=== PATIENT | female | born 1990 | race Caucasian/White ===

== ENCOUNTER → 2016-06-12 | Outpatient (REF) | payer OTHER | LOC: M SFHCLERA 17:05 | PROVIDERS: ATTEND Nurse Practitioner Family | DX: J35.1 Hypertrophy of tonsils (principal) ==

== ENCOUNTER 2016-11-28 13:22 | Emergency (ER) | payer OTHER ==
[~2016-11-28] VITALS: Ht 157.5 cm; Wt 56.8 kg
[2016-11-28] MEDS ORDERED: NS 1,000 ML IV ONE (13:45)
[2016-11-28 14:11] LABS: BASO % 0.4 % (0.0-1.0); EOS # 0.1 K/mm3 (0.0-0.50); EOS % 1.2 % (0.0-3.0); LARGE UNSTAINED CELL # 0.1 K/mm3 (0.0-0.4); LARGE UNSTAINED CELL % 1.8 % (0.0-4.0); LYMPH # 1.3 K/mm3 (1.5-6.5); LYMPH % 17.4 % (24.0-44.0); MEAN CORPUSCULAR HEMOGLOBIN 31.4 pg (27.0-33.0); MEAN CORPUSCULAR VOLUME 92.4 fl (80.0-96.0); MONO # 0.3 K/mm3 (0.0-0.8); MONO % 4.4 % (0.0-5.0); NEUTROPHILS # 5.5 K/mm3 (1.8-7.7); NEUTROPHILS % 74.7 % (36.0-66.0); PLATELET COUNT, AUTOMATED 206 k/mm3 (150-450); WHITE BLOOD COUNT 7.4 K/mm3 (4.0-10.0)
[2016-11-28 14:28] LABS: INR 1.02
[2016-11-28 14:34] LABS: ANION GAP 9 MEQ/L (8-16); BLOOD UREA NITROGEN 9 MG/DL (7-18); CALCIUM LEVEL 8.6 MG/DL (8.5-10.1); CARBON DIOXIDE LEVEL 25 MEQ/L (21-32); CHLORIDE LEVEL 109 MEQ/L (98-107); CREATININE FOR GFR 0.87 MG/DL (0.55-1.02); GLOMERULAR FILTRATION RATE > 60.0 (>60); GLUCOSE, FASTING 74 MG/DL (70-105); MAGNESIUM LEVEL 1.8 MG/DL (1.8-2.4); POTASSIUM SERUM 3.9 MEQ/L (3.5-5.1); SODIUM LEVEL 143 MEQ/L (136-145)
[2016-11-28 14:40] LABS: HCG, SERUM QUANTITATIVE < 1.0 MIU/ML
[2016-11-28] MEDS ORDERED: XANA1TAB2 PO (14:41)
[2016-11-28] MEDS ORDERED: TRAM50TA2 PO (14:41)
[2016-11-28] MEDS ORDERED: ZOFR4TAB3 PO (15:54)
[2016-11-28 15:59] LABS: METHADONE URINE NEGATIVE (NEGATIVE)
[2016-11-28 16:38] VITALS: BP 119/65
--- NOTE | 2016-11-29 06:04 | ECGEPIP ---
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
--- NOTE | 2016-11-29 13:20 | REP ---
CT BRAIN WITHOUT CONTRAST: CT brain is performed without IV contrast. The ventricles are normal in size and position. There is no midline shift. No abnormal densities are seen. Graf/white differentiation is well maintained. There is no acute hemorrhage. There is no extra-axial fluid collection. Fluid and mucosal thickening is seen in the frontal sinuses. IMPRESSION: Frontal sinusitis. Otherwise negative noncontrast CT brain. Signed by Ilan Graf MD 11/29/2016 07:00 P
== END 2016-11-28 16:42 | disposition home or self-care (01) ==
LOC: M ED 13:22
DX: R55 Syncope and collapse (principal); Z79.891 Long term (current) use of opiate analgesic; Z79.899 Other long term (current) drug therapy

== ENCOUNTER 2017-01-23 12:20 | Emergency (ER) | payer OTHER ==
[~2017-01-23] VITALS: Ht 157.5 cm; Wt 55.8 kg
[~2017-01-23 12:20] MED LIST: TRAM50TA2 PO; XANA1TAB2 PO; ZOFR4TAB3 PO
[2017-01-23] MEDS ORDERED: NS 1,000 ML IV ONE (13:15)
[2017-01-23 13:49] LABS: BASO % 0.4 % (0.0-1.0); EOS # 0.1 10^3/uL (0.0-0.50); EOS % 1.4 % (0.0-3.0); IMMATURE GRANULOCYTE % 0.1 % (0-0); LYMPH # 1.1 10^3/uL (1.5-6.5); LYMPH % 14.5 % (24.0-44.0); MEAN CORPUSCULAR HEMOGLOBIN 30.1 pg (27.0-33.0); MEAN CORPUSCULAR HGB CONC 33.4 g/dl (32.0-36.5); MEAN CORPUSCULAR VOLUME 90.1 fl (80.0-96.0); MONO # 0.5 10^3/uL (0.0-0.8); MONO % 7.1 % (0.0-5.0); NEUTROPHILS # 5.6 10^3/uL (1.8-7.7); NEUTROPHILS % 76.5 % (36.0-66.0); PLATELET COUNT, AUTOMATED 181 10^3/uL (150-450); RED CELL DISTRIBUTION WIDTH 12.3 % (11.5-14.5); WHITE BLOOD COUNT 7.3 10^3/uL (4.0-10.0)
[2017-01-23] MEDS ORDERED: ADACEL/BOOSTRIX VACCINE (DIPHTH/PERTUSS/ACELL/TETANUS)0.5ML SYR (90715) IM ONE (14:00)
[2017-01-23 14:15] LABS: ANION GAP 7 MEQ/L (8-16); BLOOD UREA NITROGEN 8 MG/DL (7-18); CALCIUM LEVEL 8.8 MG/DL (8.5-10.1); CARBON DIOXIDE LEVEL 25 MEQ/L (21-32); CHLORIDE LEVEL 105 MEQ/L (98-107); CREATININE FOR GFR 0.93 MG/DL (0.55-1.02); GLOMERULAR FILTRATION RATE > 60.0 (>60); GLUCOSE, FASTING 75 MG/DL (70-105); POTASSIUM SERUM 4.1 MEQ/L (3.5-5.1); SODIUM LEVEL 137 MEQ/L (136-145)
[2017-01-23 14:16] LABS: CONTROL LINE HCG INT CTR LINE PRESENT
[2017-01-23 15:30] VITALS: BP 118/77
[2017-01-23] MEDS ORDERED: ACETAMINOPHEN TAB 650MG DOSE (2X325MG) PO ONE (15:30)
--- NOTE | 2017-01-24 06:51 | REP ---
LEFT ELBOW, FOUR VIEWS: There is no evidence of an acute fracture, dislocation or intrinsic bone disease. IMPRESSION: No fracture or dislocation. Signed by Ilan Graf MD 01/24/2017 05:26 P
--- NOTE | 2017-01-24 06:52 | REP ---
CHEST, SINGLE VIEW: There is no evidence of acute infiltrate. No pleural effusion is seen. The heart is normal in size. The mediastinal silhouette is unremarkable. The visualized osseous structures are intact. IMPRESSION: No acute pulmonary disease. Signed by Ilan Graf MD 01/24/2017 05:26 P
--- NOTE | 2017-01-24 06:53 | REP ---
CT BRAIN WITHOUT IV CONTRAST: CT brain is performed without IV contrast. Comparison made with prior study of 11/28/2016. Ventricles are normal in size and position. There is no midline shift or mass effect. Graf-white differentiation is well maintained. There is no acute hemorrhage. There is no extra-axial fluid collection. There is no skull fracture. IMPRESSION: Negative noncontrast CT brain. Signed by Ilan Graf MD 01/24/2017 05:26 P
--- NOTE | 2017-01-24 21:19 | ECGEPIP ---
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
== END 2017-01-23 15:37 | disposition home or self-care (01) ==
LOC: EDBD 12:20 → M ED 12:20
DX: R55 Syncope and collapse (principal); F41.9 Anxiety disorder, unspecified; F12.90 Cannabis use, unspecified, uncomplicated; Z87.891 Personal history of nicotine dependence

== ENCOUNTER 2017-04-27 19:36 | Emergency (ER) | payer OTHER ==
[2017-04-27] MEDS: CLINDAMYCIN 150 MG CAP PO (21:25)
[2017-04-27] MEDS: ERYTHROMYCIN OPHTH OINT OS (21:25)
== END 2017-04-27 21:26 | disposition home or self-care (01) ==
LOC: M ED 19:36
DX: H10.022 Other mucopurulent conjunctivitis, left eye (principal); L03.213 Periorbital cellulitis; F41.9 Anxiety disorder, unspecified; Z79.899 Other long term (current) drug therapy
CPT/HCPCS: 99283

== ENCOUNTER → 2017-09-21 | Outpatient (REF) | payer OTHER ==
[2017-09-22 09:36] LABS: HEPATITIS B SURFACE ANTIGEN NEGATIVE (NEGATIVE)
[2017-09-22 09:58] LABS: HEPATITIS C VIRUS ABY INDEX < 0.0 INDEX (<0.8)
[2017-09-22 09:58] LABS: HEPATITIS B CORE ANTIBODY IGM NEGATIVE (NEGATIVE)
[2017-09-22 09:59] LABS: HIV 1&2 SCREEN CENTAUR NEGATIVE (NEGATIVE)
[2017-09-22 10:00] LABS: HEPATITIS A ANTIBODY IGM NEGATIVE (NEGATIVE)
== END ==
LOC: M SFHCPLAZ 13:08
DX: Z11.59 Encounter for screening for other viral diseases (principal); Z11.4 Encounter for screening for human immunodeficiency virus [HIV]

== ENCOUNTER → 2017-09-22 | Outpatient (CLI) | payer OTHER ==
[~2017-09-22] MED LIST changes: +ISOVUE-370 76% 100ML VIAL (Q9967) As Ordered; -TRAM50TA2 PO; -XANA1TAB2 PO; -ZOFR4TAB3 PO
== END ==
LOC: M RAD 09:23
DX: R22.31 Localized swelling, mass and lump, right upper limb (principal)
CPT/HCPCS: Q9967

== ENCOUNTER → 2017-10-14 | Outpatient (REF) | payer OTHER ==
[2017-10-14 11:07] LABS: BASO % 0.7 % (0.0-1.0); EOS # 0.3 10^3/uL (0.0-0.50); EOS % 5.7 % (0.0-3.0); HEMATOCRIT 39.9 % (36.0-47.0); HEMOGLOBIN 12.9 g/dl (12.0-15.5); IMMATURE GRANULOCYTE % 0.7 % (0-3.0); LYMPH # 2.3 10^3/uL (1.5-6.5); LYMPH % 40.7 % (24.0-44.0); MEAN CORPUSCULAR HEMOGLOBIN 30.4 pg (27.0-33.0); MEAN CORPUSCULAR HGB CONC 32.3 g/dl (32.0-36.5); MEAN CORPUSCULAR VOLUME 94.1 fl (80.0-96.0); MONO # 0.5 10^3/uL (0.0-0.8); MONO % 9.1 % (0.0-5.0); NEUTROPHILS # 2.4 10^3/uL (1.8-7.7); NEUTROPHILS % 43.1 % (36.0-66.0); PLATELET COUNT, AUTOMATED 180 10^3/uL (150-450); RED BLOOD COUNT 4.24 10^6/uL (4.00-5.40); RED CELL DISTRIBUTION WIDTH 12.2 % (11.5-14.5); WHITE BLOOD COUNT 5.6 10^3/uL (4.0-10.0)
[2017-10-14 12:52] LABS: ALBUMIN 3.8 GM/DL (3.2-5.2); ALBUMIN/GLOBULIN RATIO 1.27 (1.00-1.93); ALKALINE PHOSPHATASE 54 U/L (45-117); ALT/SGPT 45 U/L (12-78); ANION GAP 8 MEQ/L (8-16); AST/SGOT 26 U/L (7-37); BILIRUBIN,TOTAL 0.2 MG/DL (0.2-1.0); BLOOD UREA NITROGEN 7 MG/DL (7-18); CARBON DIOXIDE LEVEL 29 MEQ/L (21-32); CHLORIDE LEVEL 105 MEQ/L (98-107); CREATININE FOR GFR 0.68 MG/DL (0.55-1.30); GLOMERULAR FILTRATION RATE > 60.0 (>60); GLUCOSE, FASTING 77 MG/DL (70-100); POTASSIUM SERUM 4.2 MEQ/L (3.5-5.1); SODIUM LEVEL 142 MEQ/L (136-145); TOTAL PROTEIN 6.8 GM/DL (6.4-8.2)
[2017-10-22 14:46] LABS: AMPHETAMINE SCREEN, URINE Negative ng/mL (Cutoff=1000); BARBITURATES SCREEN, URINE Negative ng/mL (Cutoff=200); BENZODIAZEPINES, URINE SCREEN Negative ng/mL (Cutoff=200); CANNABINOID SCREEN, URINE See Final Results ng/mL (Cutoff=20); CANNABINOID, URINE Positive (Cutoff=20); CARBOXY THC (GC/MS) 40 ng/mL (Cutoff=10); COCAINE SCREEN, URINE Negative ng/mL (Cutoff=300); CODEINE, URINE Negative (Cutoff=100); CREATININE, URINE 48.5 mg/dL (20.0-300.0); FENTANYL URINE SCREEN Negative pg/mL (Cutoff=2000); HYDROCODONE CONFIRM, URINE 170 ng/mL (Cutoff=100); HYDROCODONE, URINE Positive (.); HYDROMORPHONE CONFIRM, URINE 254 ng/mL (Cutoff=100); HYDROMORPHONE, URINE Positive (.); METHADONE, URINE SCREEN Negative ng/mL (Cutoff=300); MORPHINE, URINE Negative (Cutoff=100); OPIATE SCREEN, URINE See Final Results ng/mL (Cutoff=300); OPIATES, URINE Positive ng/mL (Cutoff=300); OXYCODONE, SCREEN, URINE Negative ng/mL (Cutoff=100); PCP SCREEN, URINE Negative ng/mL (Cutoff=25); SPECIFIC GRAVITY, URINE 1.007 (.); pH, URINE 5.8 (4.5-8.9)
== END ==
LOC: M SFHCPLAZ 09:24
DX: Z00.00 Encounter for general adult medical examination without abnormal findings (principal)
CPT/HCPCS: 84443

== ENCOUNTER → 2018-02-02 | Outpatient (REF) | payer OTHER | LOC: M SFHCLERA 18:55 | DX: R11.2 Nausea with vomiting, unspecified (principal) | CPT/HCPCS: 87086 ==

== ENCOUNTER 2018-11-03 10:54 | Emergency (ER) | payer OTHER ==
[~2018-11-03] VITALS: Ht 157.5 cm; Wt 56.2 kg
[~2018-11-03 10:54] MED LIST changes: +CLEO300C2 PO; +ERYT1OIN26 OS; -ISOVUE-370 76% 100ML VIAL (Q9967) As Ordered; +TRAM50TA2 PO; +XANA1TAB2 PO; +ZOFR4TAB14 PO
[2018-11-03] MEDS ORDERED: QUET1TAB7 (11:04)
[2018-11-03] MEDS ORDERED: QUET5TAB (11:04)
[2018-11-03] MEDS ORDERED: SUBO8MIS (11:04)
--- NOTE | 2018-11-03 12:53 | REP ---
Right inguinal ultrasound for palpable lump, question of inguinal hernia: No inguinal hernia is identified by ultrasound including ultrasound without and with Valsalva. There are several right inguinal lymph nodes. There are enlarged and are hyperemic color Doppler ultrasound compatible with inflammation. There is edema in the surrounding soft tissues. Impression: No evidence of right inguinal hernia. There are enlarged, hyperemic right inguinal nodes compatible with known inflammation. There is edema in the surrounding soft tissues. Electronically Signed by Ilan Dao MD 11/03/2018 12:45 P
[2018-11-03 13:19] VITALS: BP 124/72
[2018-11-03 14:44] LABS: CHLAMYDIA DNA AMPLIFICATION POSITIVE (NEGATIVE); GC DNA AMPLIFICATION NEGATIVE (NEGATIVE)
== END 2018-11-03 13:45 | disposition home or self-care (01) ==
LOC: M ED 10:54
DX: R59.0 Localized enlarged lymph nodes (principal); A74.9 Chlamydial infection, unspecified; F41.9 Anxiety disorder, unspecified; F19.10 Other psychoactive substance abuse, uncomplicated; Z79.899 Other long term (current) drug therapy